=== PATIENT | male | born 1990 | race Caucasian/White ===

== ENCOUNTER 2017-04-29 05:18 | Emergency (ER) | payer MEDICAID ==
[~2017-04-29] VITALS: Ht 172.7 cm; Wt 94.3 kg
[2017-04-29 05:21] VITALS: BP 131/85
[2017-04-29] MEDS ORDERED: GABAPENTIN 300 MG CAPSULE PO ONE (06:00)
== END 2017-04-29 06:19 | disposition home or self-care (01) ==
LOC: ED 05:35
DX: G62.1 Alcoholic polyneuropathy (principal); F10.20 Alcohol dependence, uncomplicated
CPT/HCPCS: 99283

== ENCOUNTER 2017-06-19 17:08 | Emergency (ER) | payer MEDICAID ==
[~2017-06-19] VITALS: Ht 170.2 cm; Wt 85.9 kg
[2017-06-19 17:17] VITALS: BP 144/84
== END 2017-06-19 17:48 | disposition left against medical advice (07) ==
LOC: ED 17:42
DX: R42 Dizziness and giddiness (principal); R44.3 Hallucinations, unspecified
CPT/HCPCS: 93005; 99283

== ENCOUNTER 2017-06-27 21:53 | Emergency (ER) | payer MEDICAID ==
[~2017-06-27] VITALS: Ht 172.7 cm; Wt 84.4 kg
[2017-06-27 21:54] VITALS: BP 128/80
== END 2017-06-27 22:54 | disposition home or self-care (01) ==
LOC: ED 22:30
DX: K02.9 Dental caries, unspecified (principal); F17.200 Nicotine dependence, unspecified, uncomplicated
CPT/HCPCS: 99283

== ENCOUNTER 2017-07-31 06:02 | Emergency (ER) | payer MEDICAID ==
[~2017-07-31] VITALS: Ht 167.6 cm; Wt 75.0 kg
[~2017-07-31 06:02] MED LIST: AMOX1TAB64 PO; ARIP10TA33 PO
[2017-07-31] MEDS ORDERED: MECLIZINE CHEWABLE 25 MG TAB PO ONE (07:00)
[2017-07-31] MEDS ORDERED: MECLIZINE CHEWABLE 25 MG TAB ONE (07:16)
[2017-07-31 07:26] LABS: BASOPHILS # (AUTO) 0.01 x10^3/uL (0-0.1); BASOPHILS % (AUTO) 0 % (0-1); EOSINOPHILS # (AUTO) 0.04 x10^3/uL (0-0.4); EOSINOPHILS % (AUTO) 1 % (1-7); LYMPHOCYTES # (AUTO) 1.64 x10^3/uL (1-3.4); LYMPHOCYTES % (AUTO) 19 % (22-44); MD NO; MEAN CORPUSCULAR HEMOGLOBIN 31.8 pg (27.5-34.5); MEAN CORPUSCULAR HGB CONC 34.4 g/dL (33.2-36.2); MEAN CORPUSCULAR VOLUME 92.3 fL (81-97); MEAN PLATELET VOLUME 8.8 fL (7.4-10.4); MONOCYTES # (AUTO) 1.11 x10^3/uL (0.2-0.8); MONOCYTES % (AUTO) 13 % (2-9); NEUTROPHILS # (AUTO) 5.88 x10^3/uL (1.8-6.8); NEUTROPHILS % (AUTO) 68 % (42-75); PLATELET COUNT 283 x10^3/uL (130-400); RED BLOOD COUNT 4.63 x10^6/uL (4.38-5.82); RED CELL DISTRIBUTION WIDTH 13.5 % (9.4-14.8)
[2017-07-31 07:38] LABS: ALBUMIN 3.8 g/dL (3.4-5.0); ANION GAP 8 mmol/L (5-15); CALCIUM 9.4 mg/dL (8.5-10.1); CHLORIDE 105 mmol/L (98-107); CREATININE 0.83 mg/dL (0.7-1.3)
[2017-07-31 09:58] VITALS: BP 127/80
== END 2017-07-31 10:08 | disposition home or self-care (01) ==
LOC: ED 07:02
DX: R42 Dizziness and giddiness (principal); F17.210 Nicotine dependence, cigarettes, uncomplicated
CPT/HCPCS: 36415; 80048; 82040; 85025; 93005; 99285

== ENCOUNTER 2017-09-03 16:59 | Emergency (ER) | payer MEDICAID ==
[~2017-09-03] VITALS: Ht 172.7 cm; Wt 81.3 kg
[2017-09-03 17:17] VITALS: BP 132/77
== END 2017-09-03 18:04 | disposition home or self-care (01) ==
LOC: ED 17:58
DX: F20.9 Schizophrenia, unspecified (principal); Z76.0 Encounter for issue of repeat prescription
CPT/HCPCS: 82962; 99283

== ENCOUNTER 2017-11-12 13:52 | Emergency (ER) | payer MEDICAID ==
[~2017-11-12] VITALS: Ht 172.7 cm; Wt 86.0 kg
[2017-11-12 14:21] VITALS: BP 114/66
== END 2017-11-12 15:22 | disposition home or self-care (01) ==
LOC: ED 15:01
DX: J20.8 Acute bronchitis due to other specified organisms (principal); Z76.0 Encounter for issue of repeat prescription; G62.9 Polyneuropathy, unspecified
CPT/HCPCS: 99283

== ENCOUNTER 2017-12-10 12:32 | Emergency (ER) | payer MEDICAID ==
[~2017-12-10] VITALS: Ht 172.7 cm; Wt 81.7 kg
[2017-12-10 12:37] VITALS: BP 120/81
== END 2017-12-10 13:45 | disposition home or self-care (01) ==
LOC: ED 13:00
DX: F20.9 Schizophrenia, unspecified (principal); Z76.0 Encounter for issue of repeat prescription
CPT/HCPCS: 99283

== ENCOUNTER 2018-01-20 00:34 | Emergency (ER) | payer MEDICAID ==
[~2018-01-20] VITALS: Ht 172.7 cm; Wt 83.3 kg
[2018-01-20 00:35] VITALS: BP 137/84
[2018-01-21] MEDS ORDERED: WELLBUTRIN (23:16)
== END 2018-01-20 01:30 | disposition home or self-care (01) ==
LOC: ED 00:50
DX: M79.672 Pain in left foot (principal); M79.671 Pain in right foot; Z76.0 Encounter for issue of repeat prescription
CPT/HCPCS: 99283

== ENCOUNTER 2018-01-21 23:05 | Emergency (ER) | payer MEDICAID ==
[~2018-01-21] VITALS: Ht 177.8 cm; Wt 82.8 kg
[2018-01-21 23:06] VITALS: BP 124/81
[2018-01-21] MEDS ORDERED: WELLBUTRIN (23:16)
== END 2018-01-21 23:53 | disposition home or self-care (01) ==
LOC: ED 23:40
DX: F20.9 Schizophrenia, unspecified (principal); F17.200 Nicotine dependence, unspecified, uncomplicated; Z76.0 Encounter for issue of repeat prescription
CPT/HCPCS: 99283

== ENCOUNTER 2018-02-02 17:38 | Emergency (ER) | payer MEDICAID ==
[~2018-02-02] VITALS: Ht 175.3 cm; Wt 82.2 kg
[~2018-02-02 17:38] MED LIST changes: +WELLBUTRIN
[2018-02-02 17:44] VITALS: BP 124/74
== END 2018-02-02 18:34 | disposition home or self-care (01) ==
LOC: ED 18:28
DX: S90.822A Blister (nonthermal), left foot, initial encounter (principal); S90.821A Blister (nonthermal), right foot, initial encounter; F20.9 Schizophrenia, unspecified; G62.9 Polyneuropathy, unspecified; Z59.0 Homelessness; X58.XXXA Exposure to other specified factors, initial encounter; Y93.89 Activity, other specified; Y92.89 Other specified places as the place of occurrence of the external cause; Y99.8 Other external cause status
CPT/HCPCS: 99281

== ENCOUNTER 2018-03-16 04:54 | Emergency (ER) | payer MEDICAID ==
[~2018-03-16] VITALS: Ht 172.7 cm; Wt 83.5 kg
[2018-03-16 04:58] VITALS: BP 132/72
[2018-03-16] MEDS ORDERED: IBUPROFEN 200 MG TABLET ONE (05:49)
[2018-03-16] MEDS ORDERED: IBUPROFEN 200 MG TABLET PO ONE (06:00)
== END 2018-03-16 06:05 | disposition home or self-care (01) ==
LOC: ED 06:00
DX: S90.31XA Contusion of right foot, initial encounter (principal); S90.32XA Contusion of left foot, initial encounter; S80.12XA Contusion of left lower leg, initial encounter; S80.11XA Contusion of right lower leg, initial encounter; F20.9 Schizophrenia, unspecified; F17.200 Nicotine dependence, unspecified, uncomplicated; Z59.0 Homelessness; W18.39XA Other fall on same level, initial encounter; Y93.89 Activity, other specified; Y92.488 Other paved roadways as the place of occurrence of the external cause; Y99.8 Other external cause status; Z72.89 Other problems related to lifestyle
CPT/HCPCS: 99283

== ENCOUNTER 2018-06-06 23:24 | Emergency (ER) | payer MEDICAID, OTHER ==
[~2018-06-06] VITALS: Ht 177.8 cm; Wt 87.0 kg
[2018-06-06 23:33] VITALS: BP 131/83
[2018-06-06] MEDS ORDERED: ACETAMINOPHEN 500 MG TABLET ONE (23:51)
[2018-06-07] MEDS ORDERED: ACETAMINOPHEN 500 MG TABLET PO ONE
== END 2018-06-07 00:16 | disposition home or self-care (01) ==
LOC: ED 23:59
DX: J02.8 Acute pharyngitis due to other specified organisms (principal); B97.89 Other viral agents as the cause of diseases classified elsewhere; R53.1 Weakness
CPT/HCPCS: 99282

== ENCOUNTER 2018-06-12 08:55 | Emergency (ER) | payer MEDICAID, OTHER ==
[~2018-06-12] VITALS: Ht 175.3 cm; Wt 82.0 kg
[2018-06-12] MEDS ORDERED: KETOROLAC 30 MG/1 ML ONE (09:18)
[2018-06-12] MEDS ORDERED: METHOCARBAMOL 750 MG TABLET ONE (09:18)
[2018-06-12] MEDS ORDERED: KETOROLAC 30 MG/1 ML IM ONE (09:30)
[2018-06-12] MEDS ORDERED: METHOCARBAMOL 750 MG TABLET PO ONE (09:30)
[2018-06-12 11:23] VITALS: BP 101/55
== END 2018-06-12 11:25 | disposition home or self-care (01) ==
LOC: ED 09:21
DX: S29.012A Strain of muscle and tendon of back wall of thorax, initial encounter (principal); S39.012A Strain of muscle, fascia and tendon of lower back, initial encounter; F20.9 Schizophrenia, unspecified; W18.39XA Other fall on same level, initial encounter; Y93.89 Activity, other specified; Y92.828 Other wilderness area as the place of occurrence of the external cause; Y99.8 Other external cause status
CPT/HCPCS: 72072; 72110; 96372; 99284; J1885

== ENCOUNTER 2018-06-14 18:23 | Emergency (ER) | payer MEDICAID ==
[~2018-06-14] VITALS: Ht 172.7 cm; Wt 95.0 kg
[2018-06-14 18:32] VITALS: BP 136/79
== END 2018-06-14 18:57 | disposition home or self-care (01) ==
LOC: ED 18:51
DX: R53.1 Weakness (principal); Z76.0 Encounter for issue of repeat prescription; F20.9 Schizophrenia, unspecified
CPT/HCPCS: 99283

== ENCOUNTER 2018-08-07 13:47 | Emergency (ER) | payer MEDICAID ==
[~2018-08-07] VITALS: Ht 172.7 cm; Wt 84.8 kg
[2018-08-07 13:51] VITALS: BP 121/72
[2018-08-07 15:02] LABS: RAPID INFLUENZA A Negative (Negative); RAPID INFLUENZA B Negative (Negative)
--- NOTE | 2018-08-07 15:17 | NUR ---
Bedside SBAR report received from [facility]. Pt resting on JAIDEN villatoro.
--- NOTE | 2018-08-07 15:35 | NUR ---
Patient/Caregiver given discharge instructions and they have confirmed that they understand the instructions. Patient ambulatory with steady gait.
== END 2018-08-07 15:37 | disposition home or self-care (01) ==
LOC: ED 14:38
DX: J02.8 Acute pharyngitis due to other specified organisms (principal); B34.9 Viral infection, unspecified; Z72.9 Problem related to lifestyle, unspecified; F20.9 Schizophrenia, unspecified
CPT/HCPCS: 71045; 87081; 87147; 87400; 87880; 99284

== ENCOUNTER 2018-08-12 16:54 | Emergency (ER) | payer MEDICAID ==
[~2018-08-12] VITALS: Ht 177.8 cm; Wt 83.4 kg
[2018-08-12 17:00] VITALS: BP 138/70
== END 2018-08-12 17:39 | disposition home or self-care (01) ==
LOC: ED 17:33
DX: B37.42 Candidal balanitis (principal); F15.10 Other stimulant abuse, uncomplicated; F20.9 Schizophrenia, unspecified; Z72.9 Problem related to lifestyle, unspecified
CPT/HCPCS: 87491; 87591; 99283

== ENCOUNTER 2018-09-21 02:35 | Emergency (ER) | payer MEDICAID ==
[~2018-09-21] VITALS: Ht 172.7 cm; Wt 85.5 kg
[2018-09-21 02:37] VITALS: BP 135/84
== END 2018-09-21 03:36 | disposition home or self-care (01) ==
LOC: ED 03:05
DX: F20.9 Schizophrenia, unspecified (principal); Z76.0 Encounter for issue of repeat prescription; F17.200 Nicotine dependence, unspecified, uncomplicated
CPT/HCPCS: 99283

== ENCOUNTER 2018-09-28 02:30 | Emergency (ER) | payer MEDICAID ==
--- NOTE | 2018-09-28 04:27 | NUR ---
late note: pt triaged on downtime, once called to room, lwbs. called x3
== END 2018-09-28 04:29 | disposition left against medical advice (07) ==
LOC: ED 04:23
DX: N48.89 Other specified disorders of penis (principal); Z53.21 Procedure and treatment not carried out due to patient leaving prior to being seen by health care provider

== ENCOUNTER 2018-10-29 05:31 | Emergency (ER) | payer MEDICAID ==
[~2018-10-29] VITALS: Ht 172.7 cm; Wt 79.7 kg
--- NOTE | 2018-10-29 05:44 | NUR ---
PT CALLED FOR TRIAGE, NO ANSWER
[2018-10-29 06:00] VITALS: BP 121/77
--- NOTE | 2018-10-29 07:52 | NUR ---
ED [facility] TRICH NOTIFIED BY [employer] THAT PT REFUSED LABS AND STATED THAT HE WOULD BE LEAVING.
== END 2018-10-29 08:07 | disposition left against medical advice (07) ==
LOC: ED 08:00
DX: M62.81 Muscle weakness (generalized) (principal)
CPT/HCPCS: 99281

== ENCOUNTER 2018-11-02 19:35 | Emergency (ER) | payer MEDICAID ==
[~2018-11-02] VITALS: Ht 177.8 cm; Wt 80.2 kg
[2018-11-02 19:44] VITALS: BP 134/77
--- NOTE | 2018-11-02 20:38 | NUR ---
NO ANSWER IN LOBBY
--- NOTE | 2018-11-02 20:45 | NUR ---
NO ANSWER X2
--- NOTE | 2018-11-02 21:00 | NUR ---
NO ANSWER X3
== END 2018-11-02 21:02 | disposition left against medical advice (07) ==
LOC: ED 20:56
DX: M25.562 Pain in left knee (principal)
CPT/HCPCS: 99283

== ENCOUNTER 2018-11-21 03:06 | Emergency (ER) | payer MEDICAID ==
[~2018-11-21] VITALS: Ht 172.7 cm; Wt 78.0 kg
[2018-11-21 03:08] VITALS: BP 138/90
[2018-11-21] MEDS ORDERED: LIDOCAINE-MPF 1%, 5ML ONE (03:25)
--- NOTE | 2018-11-21 03:29 | NUR ---
[facility] AT BEDSIDE FOR PT TO FILE REPORT.
[2018-11-21] MEDS ORDERED: LIDOCAINE-MPF 1%, 5ML INFIL ONE (03:30)
[2018-11-21] MEDS ORDERED: DIPH,PERTUSS(ACELL),TET VAC/PF 0.5 ML IM-VACC ONE ×2 (04:33→05:00)
--- NOTE | 2018-11-21 05:02 | NUR ---
report received from alice lopez.
[2018-11-21] MEDS ORDERED: BACITRACIN ZINC OINT 500U/GM, 0.9 GM ONE (05:48)
--- NOTE | 2018-11-21 05:55 | NUR ---
BACITRACIN APPLIED ON WOUND. PT TOLERATED WELL.
--- NOTE | 2018-11-21 05:56 | NUR ---
PT GIVEN DC INSTRUCTIONS. PT'S AOX4. RESPS EVEN AND UNLABORED. PT AMB TO DC WITH STEADY GAIT. NO ACUTE DISTRESS AT DC.
[2018-11-21] MEDS ORDERED: BACITRACIN ZINC OINT 500U/GM, 0.9 GM TP ONE (06:00)
== END 2018-11-21 05:56 | disposition home or self-care (01) ==
LOC: ED 03:40
DX: S01.312A Laceration without foreign body of left ear, initial encounter (principal); S00.83XA Contusion of other part of head, initial encounter; M79.672 Pain in left foot; Y04.0XXA Assault by unarmed brawl or fight, initial encounter; Y93.89 Activity, other specified; Y92.830 Public park as the place of occurrence of the external cause; Y99.8 Other external cause status
CPT/HCPCS: 12011; 36415; 86705; 86706; 86803; 87340; 87806; 90471; 90715; G0475

== ENCOUNTER 2018-12-15 01:25 | Emergency (ER) | payer MEDICAID ==
--- NOTE | 2018-12-15 01:36 | NUR ---
no answer at 0130
--- NOTE | 2018-12-15 01:45 | NUR ---
no answer x2 @[id number]
--- NOTE | 2018-12-15 01:54 | NUR ---
no answer x3 @[phone]
== END 2018-12-15 01:56 | disposition left against medical advice (07) ==
LOC: ED 01:40
DX: Z76.0 Encounter for issue of repeat prescription (principal); Z53.21 Procedure and treatment not carried out due to patient leaving prior to being seen by health care provider

== ENCOUNTER 2018-12-24 22:41 | Emergency (ER) | payer MEDICAID ==
[~2018-12-24] VITALS: Ht 172.7 cm; Wt 78.3 kg
--- NOTE | 2018-12-24 22:45 | NUR ---
Attempted to triage pt. NILx1.
[2018-12-24 22:49] VITALS: BP 119/67
== END 2018-12-24 23:01 | disposition home or self-care (01) ==
LOC: ED 22:54
DX: S91.201A Unspecified open wound of right great toe with damage to nail, initial encounter (principal); X58.XXXA Exposure to other specified factors, initial encounter; Y93.89 Activity, other specified; Y92.830 Public park as the place of occurrence of the external cause; Y99.8 Other external cause status
CPT/HCPCS: 99281

== ENCOUNTER 2019-01-09 18:28 | Emergency (ER) | payer MEDICAID ==
[~2019-01-09] VITALS: Ht 172.7 cm; Wt 76.9 kg
--- NOTE | 2019-01-09 18:52 | NUR ---
ERP AT NOW.
--- NOTE | 2019-01-09 19:03 | NUR ---
WATER PROVIDED TO PT, TOLERATING WELL.
[2019-01-09 19:34] VITALS: BP 110/69
--- NOTE | 2019-01-09 19:49 | NUR ---
REPEAT VS DONE, ERP AWARE. D/C INSTRUCTIONS, MEDS & F/U APPT RV'WD WITH PT, HE VERBALIZES UNDERSTANDING. RX GIVEN X1. PT AMBULATED OUT OF ED WITHOUT DIFFICULTY.
== END 2019-01-09 19:52 | disposition home or self-care (01) ==
LOC: ED 19:04
DX: F20.1 Disorganized schizophrenia (principal)
CPT/HCPCS: 93005; 99283

== ENCOUNTER 2019-01-10 05:45 | Emergency (ER) | payer MEDICAID | END 2019-01-10 05:57 | disposition home or self-care (01) | LOC: ED 05:51 | DX: Z02.9 Encounter for administrative examinations, unspecified (principal) ==

== ENCOUNTER 2019-01-15 21:02 | Emergency (ER) | payer MEDICAID ==
[~2019-01-15] VITALS: Ht 175.3 cm; Wt 78.5 kg
[2019-01-15 21:05] VITALS: BP 107/74
== END 2019-01-15 21:21 | disposition home or self-care (01) ==
LOC: ED 21:15
DX: F20.9 Schizophrenia, unspecified (principal); Z76.0 Encounter for issue of repeat prescription
CPT/HCPCS: 99283

== ENCOUNTER 2019-01-18 04:38 | Emergency (ER) | payer MEDICAID ==
[~2019-01-18] VITALS: Ht 167.6 cm; Wt 76.1 kg
[2019-01-18 04:43] VITALS: BP 122/81
== END 2019-01-18 05:31 | disposition home or self-care (01) ==
LOC: ED 05:00
DX: R21 Rash and other nonspecific skin eruption (principal)
CPT/HCPCS: 99283

== ENCOUNTER 2019-01-18 22:54 | Emergency (ER) | payer MEDICAID ==
[~2019-01-18] VITALS: Ht 172.7 cm; Wt 71.0 kg
[2019-01-18 22:56] VITALS: BP 107/73
--- NOTE | 2019-01-18 23:22 | NUR ---
PT TO ROOM AWAITING ERP AND ORDERS.
== END 2019-01-19 00:14 | disposition home or self-care (01) ==
LOC: ED 23:46
DX: F20.9 Schizophrenia, unspecified (principal)
CPT/HCPCS: 99284

== ENCOUNTER 2019-02-01 02:08 | Emergency (ER) | payer MEDICAID ==
[~2019-02-01] VITALS: Ht 172.7 cm; Wt 70.0 kg
[2019-02-01 02:15] VITALS: BP 112/70
== END 2019-02-01 02:52 | disposition home or self-care (01) ==
LOC: ED 02:20
DX: F20.9 Schizophrenia, unspecified (principal); Z76.0 Encounter for issue of repeat prescription; Z72.9 Problem related to lifestyle, unspecified; F17.200 Nicotine dependence, unspecified, uncomplicated
CPT/HCPCS: 99283

== ENCOUNTER 2019-02-07 01:19 | Emergency (ER) | payer MEDICAID ==
[~2019-02-07] VITALS: Ht 172.7 cm; Wt 75.9 kg
--- NOTE | 2019-02-07 02:30 | NUR ---
PT TO ROOM FROM LOBBY
--- NOTE | 2019-02-07 02:37 | NUR ---
PT STATES HE HAS CUTS ON THE FORESKIN OF HIS PENIS X 2 WEEKS. HE STATES HE IS LOOKING FOR SOME TYPE OF OINTMENT TO HELP WITH THE IRRITATION.
[2019-02-07 02:43] VITALS: BP 112/78
[2019-02-07 02:46] LABS: MICROSCOPIC NOT IND
[2019-02-07 02:49] LABS: CULTURE INDICATED? NO
== END 2019-02-07 04:40 | disposition home or self-care (01) ==
LOC: ED 02:38
DX: N48.89 Other specified disorders of penis (principal)
CPT/HCPCS: 81003; 87491; 87591; 99283

== ENCOUNTER 2019-03-17 10:41 | Emergency (ER) | payer MEDICAID ==
[2019-03-17 10:48] VITALS: BP 130/77
== END 2019-03-17 14:01 | disposition home or self-care (01) ==
LOC: ED 13:39
DX: F15.129 Other stimulant abuse with intoxication, unspecified (principal); F20.9 Schizophrenia, unspecified; G62.9 Polyneuropathy, unspecified; Z72.9 Problem related to lifestyle, unspecified
CPT/HCPCS: 36415; 80053; 80307; 81001; 85025; 93005; 99284

== ENCOUNTER 2019-03-20 11:57 | Emergency (ER) | payer MEDICAID ==
[~2019-03-20] VITALS: Ht 172.7 cm; Wt 71.4 kg
[2019-03-20 12:20] VITALS: BP 110/70
== END 2019-03-20 12:59 | disposition home or self-care (01) ==
LOC: ED 12:56
DX: F20.9 Schizophrenia, unspecified (principal); Z76.0 Encounter for issue of repeat prescription
CPT/HCPCS: 99283

== ENCOUNTER 2019-07-13 00:37 | Emergency (ER) | payer MEDICAID ==
[~2019-07-13] VITALS: Ht 172.7 cm; Wt 80.8 kg
[2019-07-13 00:40] VITALS: BP 130/73
--- NOTE | 2019-07-13 00:42 | NUR ---
denies HI/SI
--- NOTE | 2019-07-13 00:50 | NUR ---
THIS IS A 28 YO MALE COMING IN FOR [facility] RX. "I JUST DON'T FEEL RIGHT WITHOUT IT, I FEEL ANXIOUS, TIRED, AND IT DOESN'T MAKE SENSE WHEN I TALK". DENIES SI/HI.
== END 2019-07-13 01:09 | disposition home or self-care (01) ==
LOC: ED 01:03
DX: F20.9 Schizophrenia, unspecified (principal); Z76.0 Encounter for issue of repeat prescription
CPT/HCPCS: 99283

== ENCOUNTER 2019-07-18 15:21 | Emergency (ER) | payer MEDICAID ==
[~2019-07-18] VITALS: Ht 177.8 cm; Wt 79.7 kg
--- NOTE | 2019-07-18 15:31 | NUR ---
NO ANSWER FOR TRIAGE @ 1531.
--- NOTE | 2019-07-18 15:40 | NUR ---
NO ANWER FROM TRIAGE
[2019-07-18 15:41] VITALS: BP 140/81
--- NOTE | 2019-07-18 16:12 | NUR ---
PT HERE WITH C/O LEFT BIG TOE PAIN.
--- NOTE | 2019-07-18 16:55 | NUR ---
Patient/Caregiver given discharge instructions and they have confirmed that they understand the instructions. Patient ambulatory with steady gait.
== END 2019-07-18 17:16 | disposition home or self-care (01) ==
LOC: ED 17:00
DX: L03.032 Cellulitis of left toe (principal); F17.200 Nicotine dependence, unspecified, uncomplicated; Z76.0 Encounter for issue of repeat prescription; Z72.89 Other problems related to lifestyle
CPT/HCPCS: 36415; 84550; 99284

== ENCOUNTER 2019-10-20 14:35 | Emergency (ER) | payer MEDICAID ==
[~2019-10-20] VITALS: Ht 172.7 cm; Wt 79.2 kg
[2019-10-20 14:47] VITALS: BP 122/74
--- NOTE | 2019-10-20 15:41 | NUR ---
TUBE DISPATCHER: PT SIGNED AMA FORM.
== END 2019-10-20 15:46 | disposition left against medical advice (07) ==
LOC: ED 15:40
DX: Z76.0 Encounter for issue of repeat prescription (principal); Z53.21 Procedure and treatment not carried out due to patient leaving prior to being seen by health care provider

== ENCOUNTER 2019-10-21 00:25 | Emergency (ER) | payer MEDICAID ==
[~2019-10-21] VITALS: Ht 172.7 cm; Wt 79.3 kg
[2019-10-21 00:30] VITALS: BP 140/80
--- NOTE | 2019-10-21 01:00 | NUR ---
PROVIDED PT WITH D/C PAPERS, PT LAYING ON HOSPITAL FLOOR USING HIS CELL PHONE, REFUSING TO GET UP FOR D/C AFTER SEVERAL ATTEMPTS BY THIS RN. SECURITY CALLED FOR ASSISTANCE WITH PT'S D/C
== END 2019-10-21 01:09 | disposition home or self-care (01) ==
LOC: ED 01:01
DX: F33.9 Major depressive disorder, recurrent, unspecified (principal); F17.200 Nicotine dependence, unspecified, uncomplicated; F20.9 Schizophrenia, unspecified
CPT/HCPCS: 99281

== ENCOUNTER 2019-10-24 19:18 | Emergency (ER) | payer MEDICAID ==
[~2019-10-24] VITALS: Ht 172.7 cm; Wt 79.8 kg
[2019-10-24 19:21] VITALS: BP 134/70
--- NOTE | 2019-10-24 19:29 | NUR ---
ARGELIA PA GIVEN PRESCRIPTION AT TRIAGE HR 130'S BUT ALFRED STOUT KNOWS PT UP AMBULATED TO OUT AFTER REC'D PRESCRIPTION
== END 2019-10-24 19:32 | disposition home or self-care (01) ==
LOC: ED 19:26
DX: F20.9 Schizophrenia, unspecified (principal); Z76.0 Encounter for issue of repeat prescription; F17.210 Nicotine dependence, cigarettes, uncomplicated
CPT/HCPCS: 99281

== ENCOUNTER 2019-10-31 21:46 | Emergency (ER) | payer MEDICAID ==
[~2019-10-31] VITALS: Ht 172.7 cm; Wt 76.9 kg
[2019-10-31 21:51] VITALS: BP 149/76
--- NOTE | 2019-10-31 22:20 | NUR ---
PT STANDING IN ROOM WORKING W/ LIGHT SWITCH HE BROUGHT WITH HIM. PT HAS MULTIPLE FLIGHT OF IDEAS, FAST SPEECH.
[2019-10-31] MEDS ORDERED: RISP1TAB3 PO (22:22)
== END 2019-10-31 22:33 | disposition home or self-care (01) ==
LOC: ED 22:00
DX: F41.1 Generalized anxiety disorder (principal); F15.10 Other stimulant abuse, uncomplicated; R00.0 Tachycardia, unspecified; F17.200 Nicotine dependence, unspecified, uncomplicated; Z76.0 Encounter for issue of repeat prescription; Z72.9 Problem related to lifestyle, unspecified
CPT/HCPCS: 93005; 99283

== ENCOUNTER 2019-11-15 18:50 | Emergency (ER) | payer MEDICAID ==
[~2019-11-15] VITALS: Ht 172.7 cm; Wt 78.7 kg
[~2019-11-15 18:50] MED LIST changes: +RISP1TAB3 PO
[2019-11-15 19:10] VITALS: BP 124/62
== END 2019-11-15 19:35 | disposition left against medical advice (07) ==
LOC: ED 19:00
DX: R50.9 Fever, unspecified (principal); R00.0 Tachycardia, unspecified; Z76.0 Encounter for issue of repeat prescription
CPT/HCPCS: 99281

== ENCOUNTER 2019-12-07 20:25 | Emergency (ER) | payer MEDICAID ==
[2019-12-07] MEDS ORDERED: IBUPROFEN 600 MG TABLET ONE (21:08)
--- NOTE | 2019-12-07 21:16 | NUR ---
PT MEDICATED PER OCT. [id number], PA UPDATED
[2019-12-07] MEDS ORDERED: IBUPROFEN 200 MG TABLET PO ONE (21:30)
== END 2019-12-07 21:24 | disposition home or self-care (01) ==
LOC: ED 21:15
DX: M25.511 Pain in right shoulder (principal); F17.210 Nicotine dependence, cigarettes, uncomplicated
CPT/HCPCS: 82962; 99283

== ENCOUNTER 2019-12-30 04:08 | Emergency (ER) | payer MEDICAID ==
[~2019-12-30] VITALS: Ht 172.7 cm; Wt 78.9 kg
[2019-12-30 04:11] VITALS: BP 149/83
== END 2019-12-30 05:03 | disposition home or self-care (01) ==
LOC: ED 04:59
DX: F31.0 Bipolar disorder, current episode hypomanic (principal); F20.89 Other schizophrenia; Z76.0 Encounter for issue of repeat prescription
CPT/HCPCS: 99281